=== PATIENT | male | born 1965 | race Caucasian/White ===

== ENCOUNTER 2023-09-17 10:56 | Inpatient (IN) | payer BC ==
[~2023-09-17] VITALS: Ht 170.2 cm; Wt 88.5 kg
[2023-09-17 12:10] LABS: HEMATOCRIT. 38.9 % (42.0-52.0); HEMOGLOBIN. 13.3 g/dL (14.0-18.0); MEAN CORPUSCULAR HEMOGLOBIN 32.4 pg (28.0-32.0); MEAN CORPUSCULAR HGB CONC 34.2 g/dL (31.0-37.0); MEAN CORPUSCULAR VOLUME 94.8 fL (80.0-94.0); MEAN PLATELET VOLUME 8.1 fl (7.4-10.4); PLATELET 221 x1000/uL (130-400); RED CELL DISTRIBUTION WIDTH 13.2 % (11.6-14.6); WHITE BLOOD COUNT 7.5 x1000/uL (4.5-11.0)
[2023-09-17 12:12] LABS: DIFFERENTIAL COMMENT 1
[2023-09-17 12:26] LABS: CHLORIDE 98 mEq/L (98-107); POTASSIUM 3.8 mEq/L (3.5-5.1); SODIUM 131 mEq/L (136-145)
[2023-09-17 12:27] LABS: CALCIUM 8.8 mg/dL (8.7-10.4); CARBON DIOXIDE 25 mEq/L (21-32)
[2023-09-17 12:32] LABS: GLUCOSE 106 mg/dL (70-105); UREA NITROGEN BLOOD 12 mg/dL (9-23)
[2023-09-17 12:34] LABS: TROPONIN I HIGH SENSITIVITY < 4 ng/L (3.0-53)
[2023-09-17 12:47] LABS: PLATELET ESTIMATE NORMAL
[2023-09-17] MEDS ORDERED: NITROGLYCERIN 0.4MG TABLET SL SL PRN (15:00)
[2023-09-17] MEDS ORDERED: MAGNESIUM/ALUMINUM HYDROXIDE/SIMETHICONE 30ML UDC PO PRN (15:00)
[2023-09-17] MEDS ORDERED: CLONIDINE 0.1MG TABLET PO PRN (15:00)
[2023-09-17] MEDS ORDERED: ONDANSETRON HCL 4MG/2ML INJ IV PRN (15:00)
[2023-09-17] MEDS ORDERED: ACETAMINOPHEN 325MG TABLET PO PRN ×2 (15:00)
[2023-09-17] MEDS ORDERED: DOCUSATE SODIUM 100MG CAPSULE PO PRN (15:00)
[2023-09-17] MEDS ORDERED: GUAIFENESIN 200MG/10ML SUGAR FREE UDC PO PRN (15:00)
[2023-09-17] MEDS ORDERED: IPRATROPIUM/ALBUTEROL 0.5-3(2.5)MG/3ML NEB NEB PRN (15:00)
[2023-09-17] MEDS: SODIUM CHLORIDE 0.9% 1000ML BAG (SEPSIS BOLUS) IV NR (15:00)
[2023-09-17] MEDS ORDERED: KETOROLAC 15MG/ML VIAL IV PRN (15:00)
[2023-09-17] MEDS ORDERED: ZOLPIDEM TARTRATE 5MG TABLET PO PRN (15:00)
[2023-09-17 17:42] VITALS: BP 153/90; PULSE 77; RESP 18; TEMP 97
[2023-09-17] MEDS ORDERED: TELM40TA7 PO (17:59)
[2023-09-17] MEDS ORDERED: IBUP-2328 MT (18:00)
[2023-09-17] MEDS ORDERED: AMOX125S12 PO (18:02)
[2023-09-17] MEDS: ENOXAPARIN 40MG/0.4ML SYR SUBCUT SCH (18:41)
[2023-09-17 20:00] VITALS: BP 122/78; PULSE 60; RESP 18; TEMP 97.5
[2023-09-17] MEDS: ASCORBIC ACID 500 MG TABLET PO SCH (21:36)
[2023-09-17] MEDS: FAMOTIDINE 20MG TABLET PO SCH (21:36)
[2023-09-17 22:06] LABS: IRON 55 ug/dL (65-175)
[2023-09-17 22:07] LABS: TRIGLYCERIDE 78 mg/dL (0-150)
[2023-09-17 22:08] LABS: LDL CHOLESTEROL 196 mg/dL (5-100)
[2023-09-17 22:09] LABS: CHOLESTEROL 250 mg/dL (<200); HDL CHOLESTEROL 48 mg/dL (>55); TOTAL IRON BINDING CAPACITY 286 ug/dl (250-425)
[2023-09-17 22:11] LABS: T4 FREE 1.12 ng/dL (0.89-1.76)
[2023-09-17 22:12] LABS: THYROID STIMULATING HORMONE 1.89 uIU/mL (0.55-4.78)
[2023-09-17 22:20] LABS: FOLIC ACID (FOLATE) SERUM 17.71 ng/mL (>5.38)
[2023-09-17 22:21] LABS: VITAMIN B12 SERUM 471 pg/mL (211-911)
[2023-09-17 22:55] LABS: *AMPHETAMINES SCREEN URINE NEGATIVE (NEGATIVE); *BARBITURATES SCREEN URINE NEGATIVE (NEGATIVE); *BENZODIAZEPINES SCREEN URINE NEGATIVE (NEGATIVE); CANNABINOID URINE SCREEN NEGATIVE (NEGATIVE); ECSTASY MDMA SCREEN URINE NEGATIVE (NEGATIVE); METHADONE URINE SCREEN NEGATIVE (NEGATIVE); OPIATES URINE SCREEN NEGATIVE (NEGATIVE); PHENCYCLIDINE URINE SCREEN NEGATIVE (NEGATIVE)
[2023-09-17 22:57] LABS: CREATINE KINASE MB FRACTION 1.5 ng/mL (0.5-3.6)
[2023-09-17 23:01] LABS: *COCAINE SCREEN URINE NEGATIVE (NEGATIVE)
[2023-09-17 23:04] LABS: CREATINE KINASE 105 IU/L (46-171)
[2023-09-17 23:09] LABS: TROPONIN I HIGH SENSITIVITY < 4 ng/L (3.0-53)
[2023-09-18] VITALS: BP 126/72; PULSE 59; RESP 19; TEMP 97.5
[2023-09-18 04:00] VITALS: BP 137/77; PULSE 56; RESP 19; TEMP 97.8
[2023-09-18 07:03] LABS: HEMATOCRIT. 44.4 % (42.0-52.0); HEMOGLOBIN. 15.3 g/dL (14.0-18.0); MEAN CORPUSCULAR HEMOGLOBIN 32.6 pg (28.0-32.0); MEAN CORPUSCULAR HGB CONC 34.5 g/dL (31.0-37.0); MEAN CORPUSCULAR VOLUME 94.5 fL (80.0-94.0); MEAN PLATELET VOLUME 8.5 fl (7.4-10.4); PLATELET 264 x1000/uL (130-400); RED CELL DISTRIBUTION WIDTH 13.8 % (11.6-14.6); WHITE BLOOD COUNT 5.8 x1000/uL (4.5-11.0)
[2023-09-18 07:05] LABS: CREATINE KINASE MB FRACTION 1.1 ng/mL (0.5-3.6)
[2023-09-18 07:07] LABS: CREATINE KINASE 91 IU/L (46-171)
[2023-09-18 07:12] LABS: CHLORIDE 103 mEq/L (98-107); POTASSIUM 4.6 mEq/L (3.5-5.1); SODIUM 137 mEq/L (136-145)
[2023-09-18 07:16] LABS: CALCIUM 9.4 mg/dL (8.7-10.4); CARBON DIOXIDE 26 mEq/L (21-32)
[2023-09-18 07:20] LABS: ALANINE AMINOTRANSFERASE 37 IU/L (10-49)
[2023-09-18 07:21] LABS: GLUCOSE 98 mg/dL (70-105); UREA NITROGEN BLOOD 10 mg/dL (9-23)
[2023-09-18 07:23] LABS: ALBUMIN 4.2 g/dL (3.2-4.8); ASPARTATE AMINOTRANSFERASE 35 IU/L (<34); BILIRUBIN TOTAL 0.4 mg/dL (0.1-1.0); PHOSPHORUS 3.3 mg/dL (2.5-4.9); PROTEIN TOTAL 7.2 g/dL (6.0-8.3)
[2023-09-18 07:32] LABS: TROPONIN I HIGH SENSITIVITY < 4 ng/L (3.0-53)
[2023-09-18 07:42] LABS: DIFFERENTIAL COMMENT 1
[2023-09-18 08:00] VITALS: BP 131/82; PULSE 65; RESP 16; TEMP 97.3
[2023-09-18] MEDS: ZINC SULFATE 220 MG ( 50 ) CAPSULE PO SCH (08:37)
[2023-09-18] MEDS: ASPIRIN 81MG EC TABLET PO SCH (08:37)
[2023-09-18] MEDS: CEFTRIAXONE 1GM/50ML 50 ML IV SCH (08:38)
[2023-09-18 12:00] VITALS: BP 146/84; PULSE 63; RESP 18; TEMP 97.6
[2023-09-18 16:00] VITALS: BP 119/67; PULSE 69; RESP 18; TEMP 97.5
[2023-09-18 17:52] LABS: PLATELET ESTIMATE NORMAL
[2023-09-18 20:00] VITALS: BP 124/75; PULSE 68; RESP 20; TEMP 97.5
[2023-09-19] VITALS: BP 108/64; PULSE 62; RESP 18; TEMP 97.6
[2023-09-19 04:00] VITALS: BP 115/74; PULSE 64; RESP 18; TEMP 97.7
[2023-09-19 08:00] VITALS: BP 145/79; PULSE 64; RESP 18; TEMP 97.5
[2023-09-19 16:13] VITALS: BP 142/78; PULSE 66; RESP 18; TEMP 97.4
[2023-09-19 20:00] VITALS: BP 131/85; PULSE 68; RESP 18; TEMP 97.5
[2023-09-20] VITALS: BP 128/78; PULSE 60; RESP 18; TEMP 97.3
[2023-09-20 04:13] VITALS: BP 115/79; PULSE 61; RESP 18; TEMP 97.1
[2023-09-20 07:12] LABS: BASOPHILS % 1.4 % (0.0-2.0); EOSINOPHILS % 2.7 % (0.0-5.0); HEMATOCRIT. 46.9 % (42.0-52.0); HEMOGLOBIN. 15.8 g/dL (14.0-18.0); LYMPHOCYTES % 37.8 % (20.0-50.0); MEAN CORPUSCULAR HEMOGLOBIN 32.2 pg (28.0-32.0); MEAN CORPUSCULAR HGB CONC 33.7 g/dL (31.0-37.0); MEAN CORPUSCULAR VOLUME 95.3 fL (80.0-94.0); MEAN PLATELET VOLUME 8.6 fl (7.4-10.4); MONOCYTES % 11.8 % (2.0-8.0); NEUTROPHILS % 46.3 % (40.0-76.0); PLATELET 297 x1000/uL (130-400); RED BLOOD CELL COUNT 4.92 mill/uL (4.7-6.1); RED CELL DISTRIBUTION WIDTH 13.6 % (11.6-14.6)
[2023-09-20 07:16] LABS: CHLORIDE 101 mEq/L (98-107); POTASSIUM 4.4 mEq/L (3.5-5.1); SODIUM 137 mEq/L (136-145)
[2023-09-20 07:18] LABS: CARBON DIOXIDE 30 mEq/L (21-32)
[2023-09-20 07:23] LABS: CREATININE 1.1 mg/dL (0.6-1.3); GLUCOSE 100 mg/dL (70-105)
[2023-09-20 07:24] LABS: ALANINE AMINOTRANSFERASE 40 IU/L (10-49); ALBUMIN 4.6 g/dL (3.2-4.8); ASPARTATE AMINOTRANSFERASE 36 IU/L (<34); UREA NITROGEN BLOOD 11 mg/dL (9-23)
[2023-09-20 07:26] LABS: BILIRUBIN TOTAL 0.5 mg/dL (0.1-1.0); PHOSPHORUS 3.8 mg/dL (2.5-4.9); PROTEIN TOTAL 8.1 g/dL (6.0-8.3)
[2023-09-20 08:00] VITALS: BP 131/85; PULSE 68; RESP 18; TEMP 97.5
[2023-09-20 11:55] VITALS: BP 131/85; PULSE 68; TEMP 97.5; O2SAT 100
[2023-09-20 12:00] VITALS: BP 128/78; PULSE 56; RESP 18; TEMP 97.3
== END 2023-09-20 12:55 | disposition home or self-care (01) | DRG 641 ==
LOC: ER 10:56 → EDBEDREQTM 13:19 → EDBEDREQ 13:19 → 7EST 17:50
PROVIDERS: ADMIT Internal Medicine; ATTEND Internal Medicine
DX: E87.1 Hypo-osmolality and hyponatremia (principal); I10 Essential (primary) hypertension; D72.825 Bandemia; D53.9 Nutritional anemia, unspecified; E11.65 Type 2 diabetes mellitus with hyperglycemia
CPT/HCPCS: 36415; 71045; 80048; 80053; 80061; 80305; 82550; 82553; 82607; 82746; 82962; 83036; 83540; 83550; 83605; 83735; 83880; 84100; 84145; 84439; 84443; 84484; 85025; 85651; 93005; 93970; 99285; J0696; J1650